=== PATIENT | female | born 1950 | race Caucasian/White ===

== ENCOUNTER 2017-01-30 07:59 | Day surgery (SDC) | payer MEDICARE, OTHER ==
[~2017-01-30 07:59] MED LIST: Lactated Ringers 1,000 ML IV SCH
[2017-01-30] MEDS ORDERED: fentaNYL 100 MCG/2 ML SDV ONE (10:31)
[2017-01-30] MEDS ORDERED: Propofol 200 MG/20 ML SDV ONE (10:31)
[2017-01-30] MEDS ORDERED: Bupivacaine 0.25%/EPINEPHrine 1:200,000 30 ML SDV ONE (10:33)
[2017-01-30] MEDS ORDERED: Bupivacaine 0.25%/EPINEPHrine 1:200,000 30 ML SDV INFILT ONE ×2 (11:07)
[2017-01-30] MEDS ORDERED: ceFAZolin 1 GM Vial ONE (11:31)
[2017-01-30 12:44] VITALS: BP 124/74
--- NOTE | 2017-02-02 08:42 | OR ---
PREOPERATIVE DIAGNOSIS: Symptomatic external hemorrhoidal tag. POSTOPERATIVE DIAGNOSIS: Symptomatic external hemorrhoidal tag. PROCEDURE PROPOSED: Single quadrant hemorrhoidectomy. PROCEDURE DONE: Single quadrant hemorrhoidectomy. INDICATION: This is a 66-year-old female with a bothersome external hemorrhoidal tag and it was felt that she is best served to have this elliptically excised. She comes in for a recommended procedure. TECHNIQUE: The patient brought to the operative suite, given some IV sedation, placed in the lithotomy position. A perianal block was performed with 0.25% Marcaine with epinephrine. I then used a large Winters retractor to put in position. The patient was found to have a significant external hemorrhoidal tag that extended internally in the right anterior quadrant. An ellipse was performed over this hemorrhoidal bundle, carried internally just beyond the external sphincter. Care was taken to preserve the sphincter after excising the hemorrhoidal bundle. Hemostasis was obtained with cautery. It was then closed with a running locking 3-0 chromic, bringing it out onto the skin externally and good hemostasis was assured and the procedure was then terminated and she was taken back to day surgery in good condition. SCM: 01/30/2017 11:21:55 MODL: 01/30/2017 16:26:55 /[id number]
--- NOTE | 2017-02-09 09:01 | LETTER ---
02/06/2017 RE: JAYCE BENAVIDEZ : 1950 Dear Jayce: I am pleased to report to you that the lesion removed from your anal area was a fibroepithelial polyp, also known as an anal tag. This is a totally benign lesion and nothing to worry about it, and hopefully, everything is healing well for you. If you have any further question regarding this, feel free to call. Respectfully Yours,
== END 2017-01-30 13:23 | disposition home or self-care (01) ==
LOC: VM.SDS 07:59
PROVIDERS: ATTEND Surgery
DX: K64.4 Residual hemorrhoidal skin tags (principal); I10 Essential (primary) hypertension; K21.9 Gastro-esophageal reflux disease without esophagitis; Z88.2 Allergy status to sulfonamides; Z90.710 Acquired absence of both cervix and uterus; Z98.890 Other specified postprocedural states; Z98.51 Tubal ligation status
CPT/HCPCS: 00810; 46255; 88304; J0690; J2704; J3010; J7120

== ENCOUNTER 2017-08-05 08:11 | Day surgery (SDC) | payer MEDICARE, OTHER ==
[2017-08-05] MEDS ORDERED: Propofol 200 MG/20 ML SDV ONE ×2 (09:01→10:03)
[2017-08-05 10:31] VITALS: BP 154/79
--- NOTE | 2017-08-05 14:11 | OR ---
PREOPERATIVE DIAGNOSIS: History of colon cancer. POSTOPERATIVE DIAGNOSIS: Normal colonoscopic exam status post sigmoid resection. PROCEDURE PROPOSED AND PROCEDURE DONE: Total flexible colonoscopy. INDICATION: This is a 67-year-old female who had a sigmoid resection done in [place], [place], 2 years ago, and she comes in for a followup exam. She did have one colonoscopy since her surgery about a year ago and no findings were found at that time. TECHNIQUE: The patient was brought to the endoscopy suite and placed in left lateral decubitus position. She was sedated with propofol per OIL SEPARATOR. The flexible video colonoscope was then passed transanally and under visualization, advanced through the anastomosis, which was noted at about 10 cm from the anal verge. This was widely patent without any signs of recurrence. She had a very sharp, scarred down angulation at about 40 cm indicating that likely part of her colon has scarred down in a certain position due to her surgery. After numerous attempts, I was able to get through this tight area and then advanced the scope onto the cecum. Examination revealed a normal ascending, transverse, and descending colon. Sigmoid colon was predominantly surgically absent, but she did have a very significant angulation in her colon likely due to part of her colon scarring down from the surgery making this examination moderately difficult. No polyps were found. No other abnormalities. No diverticulosis. The scope was then withdrawn. She tolerated the procedure well. FINAL IMPRESSION: 1. Previous sigmoid resection for colon cancer. 2. Sharp angulation at 40 to 45 cm, likely due to internal scarring. PLAN: The patient is reassured. I felt that she could wait now 3 years before she needs her next colonoscopy and if that was normal, she could spread it out to every 5 years. SCM: 08/05/2017 10:18:54 MODL: 08/05/2017 13:57:10 /[id number]
== END 2017-08-05 12:35 | disposition home or self-care (01) ==
LOC: VM.SDS 08:11
PROVIDERS: ATTEND Surgery
DX: Z12.11 Encounter for screening for malignant neoplasm of colon (principal); I10 Essential (primary) hypertension; E78.5 Hyperlipidemia, unspecified; Z85.038 Personal history of other malignant neoplasm of large intestine; Z88.2 Allergy status to sulfonamides; Z98.890 Other specified postprocedural states; Z79.899 Other long term (current) drug therapy; Z79.2 Long term (current) use of antibiotics; Z90.710 Acquired absence of both cervix and uterus
CPT/HCPCS: G0105; J2704; J7120

== ENCOUNTER 2020-07-04 08:23 | Day surgery (SDC) | payer MEDICARE, OTHER ==
[~2020-07-04 08:23] MED LIST changes: +Sodium Chloride 0.9% 10 ML Syringe FLUSH PRN
[2020-07-04] MEDS ORDERED: Propofol 200 MG/20 ML SDV ONE (08:48)
[2020-07-04] MEDS ORDERED: fentaNYL 100 MCG/2 ML SDV ONE (08:48)
[2020-07-04 12:32] VITALS: BP 165/78; PULSE 58
--- NOTE | 2020-07-04 15:46 | OR ---
PREOPERATIVE DIAGNOSIS: Surveillance colonoscopy in the setting of prior colon cancer and sigmoid resection. POSTOPERATIVE DIAGNOSIS: Surveillance colonoscopy in the setting of prior colon cancer and sigmoid resection. PROCEDURE PERFORMED: Aborted colonoscopy due to rigid tortuous colon at approximately 40 cm. ANESTHESIA: MAC anesthesia. COMPLICATIONS: Inability to pass the scope, further than about 40 cm due to rigid tortuous colon even with a pediatric scope. BLOOD LOSS: Minimal. FINDINGS: 1. The anastomosis appeared intact at approximately 10 cm. 2. At about 40 cm the colon was very rigid and tortuous. Several attempts were made to pass the adult colonoscope past this portion. This was unsuccessful. We then switched out for a pediatric scope and again a couple of attempts were made, but I was unable to get the scope to pass. At this point, I felt that risks outweighed benefits of further attempts and the procedure was terminated. INDICATION FOR PROCEDURE: Khushbu Benoit is a 70-year-old female who has a history of colon cancer, status post sigmoid resection in 2014. She is here for surveillance colonoscopy. She has had a couple of prior scopes, both of which have been unremarkable since her cancer resection. In 2017, scope did note a rigid tortuous colon at about 40 cm, and the endoscopist was unable to get past that portion. DETAILS OF PROCEDURE: After informed consent was obtained, the patient was brought to the procedure room and placed in a left lateral decubitus position. MAC anesthesia was induced by Anesthesia colleagues. The colonoscope was introduced into the rectum and advanced to about 40 cm. At this point, the colon was quite rigid and tortuous. Several attempts were made to pass the scope in this area and we also utilized some abdominal pressure. However, this was unsuccessful. We then paused and exchanged the scope for a pediatric colonoscope. Again, a couple of attempts were made, but I was unable to traverse this portion of the colon. I suspect that she has some internal adhesions from her colon resection. I felt that further attempts were unlikely to be successful and I was concerned that the risk of perforation was increasing. We terminated the procedure. At this point, the colonoscope was withdrawn. No pathology was identified in the portion that was visualized. The anastomosis looked good without any evidence of narrowing. I will ask her primary doctor to refer her to a GI specialist for another attempt at colonoscopy. BOWEL PREP: Bear class 3. RKM: 07/04/2020 11:03:54 MODL: 07/04/2020 15:15:21 /[id number]
== END 2020-07-04 12:32 | disposition home or self-care (01) ==
LOC: VM.SDS 08:23
PROVIDERS: ATTEND Student in an Organized Health Care Education/Training Program
DX: Z12.11 Encounter for screening for malignant neoplasm of colon (principal); Q43.8 Other specified congenital malformations of intestine; R31.0 Gross hematuria; Z01.812 Encounter for preprocedural laboratory examination; Z85.038 Personal history of other malignant neoplasm of large intestine; Z90.49 Acquired absence of other specified parts of digestive tract; Z20.828 Contact with and (suspected) exposure to other viral communicable diseases; Z98.0 Intestinal bypass and anastomosis status; Z98.890 Other specified postprocedural states; Z85.048 Personal history of other malignant neoplasm of rectum, rectosigmoid junction, and anus; Z79.899 Other long term (current) drug therapy; Z88.2 Allergy status to sulfonamides; Z88.8 Allergy status to other drugs, medicaments and biological substances; E78.5 Hyperlipidemia, unspecified; E66.9 Obesity, unspecified; Z68.24 Body mass index [BMI] 24.0-24.9, adult
CPT/HCPCS: 00811; J2704; J3010; J7120; U0002